=== PATIENT | female | born 1950 | race Caucasian/White ===

== ENCOUNTER 2024-11-25 06:15 | Day surgery (SDC) | payer MEDICARE, OTHER ==
[~2024-11-25 06:15] MED LIST: Bupivacaine 0.25% 10 ML SDV ONE; Sodium Chloride 0.9% 10 ML Syringe FLUSH PRN; Sodium Chloride 0.9% 10 ML Syringe FLUSH SCH
[2024-11-25] MEDS ORDERED: fentaNYL 100 MCG/2 ML SDV IVPUSH PRN (06:49)
[2024-11-25] MEDS ORDERED: HYDROmorphone 0.5 MG/0.5 ML Syringe IVPUSH PRN (06:49)
[2024-11-25] MEDS ORDERED: Ondansetron 4 MG/2 ML SDV IVPUSH PRN (06:49)
[2024-11-25] MEDS ORDERED: Ondansetron 4 MG/2 ML SDV ONE (06:50)
[2024-11-25] MEDS ORDERED: Propofol 200 MG/20 ML SDV ONE (06:50)
[2024-11-25] MEDS ORDERED: Dexamethasone 4 MG/ML 5 ML MDV ONE (06:50)
[2024-11-25] MEDS: Lactated Ringers 1,000 ML IV SCH (06:50)
[2024-11-25] MEDS ORDERED: Rocuronium 50 MG/5 ML Vial ONE (06:50)
[2024-11-25] MEDS ORDERED: Midazolam 1 MG/ML 2 ML SDV ONE (06:50)
[2024-11-25] MEDS ORDERED: Lactated Ringers 1,000 ML ONE (06:50)
[2024-11-25] MEDS ORDERED: fentaNYL 250 MCG/5 ML SDV ONE (06:51)
[2024-11-25] MEDS ORDERED: Lidocaine 1% 4 ML ONE (06:51)
[2024-11-25] MEDS ORDERED: ceFAZolin 2 GM Vial ONE (06:51)
[2024-11-25 06:53] LABS: BASOPHILS ABSOLUTE AUTO 0.1 K/mm3 (0.0-0.2); BASOPHILS PERCENT AUTO 0.7 % (0.0-1.0); EOSINOPHILS ABSOLUTE AUTO 0.2 K/mm3 (0.0-0.4); EOSINOPHILS PERCENT AUTO 2.3 % (0.0-6.0); HEMATOCRIT 44.1 % (37.0-47.0); HEMOGLOBIN 14.5 gm/dl (12.0-16.0); IMMATURE GRAN ABSOLUTE AUTO 0.01 K/mm3 (0.00-0.05); IMMATURE GRAN PERCENT AUTO 0.1 % (0.0-0.4); LYMPHOCYTES ABSOLUTE AUTO 1.8 K/mm3 (1.0-4.8); LYMPHOCYTES PERCENT AUTO 23.4 % (24.0-44.0); MEAN CORPUSCULAR HEMOGLOBIN 31.2 pg (28.0-32.0); MEAN CORPUSCULAR HGB CONC 32.9 g/dl (32.0-36.0); MEAN CORPUSCULAR VOLUME 94.8 fl (83.0-99.0); MEAN PLATELET VOLUME 12.6 fl (9.4-12.3); MONOCYTES ABSOLUTE AUTO 0.7 K/mm3 (0.0-0.8); MONOCYTES PERCENT AUTO 9.1 % (0.0-8.0); NEUTROPHILS ABSOLUTE AUTO 4.8 K/mm3 (1.8-7.7); NEUTROPHILS PERCENT AUTO 64.4 % (41.0-71.0); PLATELET COUNT,PLT 149 K/mm3 (150-400); RED BLOOD CELL COUNT 4.65 M/mm3 (4.10-5.30); WHITE BLOOD CELL COUNT,WBC 7.51 K/mm3 (3.9-11.3)
[2024-11-25 07:19] LABS: ANION GAP 14.8 (5-15); CALCIUM 9.6 mg/dL (8.5-10.1); EST CRCL DRUG DOSING (CG) 45.68 mL/min; POTASSIUM,K 3.8 mEq/L (3.5-5.1)
[2024-11-25] MEDS ORDERED: Phenylephrine 1% 10 MG/ML SDV ONE (07:31)
[2024-11-25] MEDS ORDERED: ePHEDrine 50 MG/ML SDV ONE (07:41)
[2024-11-25] MEDS ORDERED: dexmedeTOMIDine HCl 200 MCG/2 ML SDV ONE (07:49)
[2024-11-25] MEDS ORDERED: Sugammadex Sodium 200 MG/2 ML VIAL IV ONE (07:49)
[2024-11-25] MEDS ORDERED: Ketorolac 15 MG/ML SDV ONE (08:26)
[2024-11-25] MEDS: EPINEPHrine 1 MG/ML SDV ONE (08:41)
[2024-11-25] MEDS: Bupivacaine 0.25% 10 ML SDV ONE (08:41)
[2024-11-25] MEDS: Bupivacaine 0.5% 30 ML SDV ONE (08:41)
[2024-11-25] MEDS ORDERED: Acetaminophen/oxyCODONE 325-5 MG Tab PO PRN (10:43)
== END 2024-11-25 16:15 | disposition home or self-care (01) ==
LOC: JD.SDS 06:15
PROVIDERS: ATTEND Obstetrics & Gynecology
DX: N84.0 Polyp of corpus uteri (principal); N80.03 Adenomyosis of the uterus; D25.9 Leiomyoma of uterus, unspecified; N83.8 Other noninflammatory disorders of ovary, fallopian tube and broad ligament; E11.9 Type 2 diabetes mellitus without complications; E66.9 Obesity, unspecified; I10 Essential (primary) hypertension; E78.2 Mixed hyperlipidemia; Z88.8 Allergy status to other drugs, medicaments and biological substances; Z79.899 Other long term (current) drug therapy; Z68.37 Body mass index [BMI] 37.0-37.9, adult
CPT/HCPCS: 36415; 58552; 80048; 82947; 85025; 86850; 86900; 86901; 88307; J0171; J0665; J0690; J1100; J1885; J2250; J2371; J2405; J2704; J3010; J7120; 00944; 99100; J3490